=== PATIENT | male | born 1995 | race Caucasian/White ===

== ENCOUNTER 2016-11-06 12:25 | Emergency (ER) | payer BC ==
[2016-11-06 13:54] VITALS: BP 126/56
--- NOTE | 2016-11-06 16:03 | UC ---
Lower Extremity/Ankle HPI - HPI Summary HPI Summary: skiing on Wednesday, no particular injuries. Woke Wednesday with redness, pain, swelling along shinbone on left lower leg. As days went by it felt better, but now noting bruising around ankle. HE skis quite a bit. Limped heavily first few days, today can walk comfortably. Hasn't been skiing since the pain started. - History of Current Complaint Chief Complaint: UCLowerExtremity Stated Complaint: LEFT LEG PAIN Time Seen by Provider: 11/06/16 15:30 Hx Obtained From: Patient Onset/Duration: Gradual Onset, Lasting Days - 4 Severity Initially: Moderate Severity Currently: Mild Aggravating Factor(s): Ambulation, Other - dorsiflexion and plantarflexing foot Alleviating Factor(s): Rest, Elevation, Ice Able to Bear Weight: Yes - Risk Factors Gout Risk Factors: Negative DVT Risk Factors: Negative Septic Arthritis Risk Factor: Negative - Allergies/Home Medications Allergies/Adverse Reactions: Allergies Allergy/AdvReac Type Severity Reaction Status Date / Time No Known Allergies Allergy Verified 11/06/16 13:54 PMH/Surg Hx/FS Hx/Imm Hx Previously Healthy: Yes - Surgical History Surgical History: None - Family History Known Family History: Positive: Other - no skeletal disorders - Social History Occupation: Student Lives: Alone - dorm Alcohol Use: Occasionally Substance Use Type: None Smoking Status (MU): Never Smoked Tobacco Review of Systems Constitutional: Negative Skin: Negative Eyes: Negative ENT: Negative Respiratory: Negative Cardiovascular: Negative Gastrointestinal: Negative Genitourinary: Negative Motor: Negative Neurovascular: Negative Musculoskeletal: Myalgia Neurological: Negative Psychological: Negative All Other Systems Reviewed And Are Negative: Yes Physical Exam Triage Information Reviewed: Yes Appearance: Well-Appearing, No Pain Distress, Well-Nourished Vital Signs: Initial Vital Signs Temp 97.5 F 11/06/16 13:51 Pulse 68 11/06/16 13:51 Resp 16 11/06/16 13:51 BP 126/56 11/06/16 13:51 Pulse Ox 100 11/06/16 13:51 Vital Signs Reviewed: Yes Eye Exam: Normal Neck exam: Normal Respiratory Exam: Normal Cardiovascular Exam: Normal Musculoskeletal Exam: Other - tender along lateral surface of left tibia. There is pitting edema there. Mild bruising over anterior ankle, no tenderness there. Can plantarflex and dorsiflex with minimal discomfort. walking normally Neurological Exam: Normal Psychological Exam: Normal Skin Exam: Normal Lower Extremity Course/Dx - Differential Dx/Diagnosis Differential Diagnosis/HQI/PQRI: Cellulitis, Compartment Syndrome, Fracture ( Closed), Sprain, Tendonitis Provider Diagnoses: sol splints Discharge - Discharge Plan Condition: Stable Disposition: HOME Patient Education Materials: Sol Splint Exercises (GEN), Sol Splints (ED) Referrals: Non Staff,Doctor [Primary Care Provider] -
== END 2016-11-06 16:11 | disposition home or self-care (01) ==
LOC: UCCORT 12:25
DX: S86.892A Other injury of other muscle(s) and tendon(s) at lower leg level, left leg, initial encounter (principal); X58.XXXA Exposure to other specified factors, initial encounter; Y93.23 Activity, snow (alpine) (downhill) skiing, snowboarding, sledding, tobogganing and snow tubing; Y92.9 Unspecified place or not applicable
CPT/HCPCS: 99212; G0463

== ENCOUNTER 2019-01-15 15:31 | Emergency (ER) | payer BC ==
--- NOTE | 2019-01-15 15:49 | UC ---
FLU HPI - HPI Summary HPI Summary: 23 year old male presents with complaints of sore throat for past week. States 3 days ago developed chest congestion and an occasionally productive cough. States chest "nelson" with coughing. Also notes body aches. History of asthma and has needed to use his albuterol inhaler a couple times for mild wheezing since cough started. Denies fever, chills, ear pain, nasal congestion, runny nose, dysphagia, chest pain, shortness of breath, abdominal pain, nausea, or vomiting. - History of Current Complaint Stated Complaint: COUGH, CONGESTION, ACHEY Time Seen by Provider: 01/15/19 15:40 Hx Obtained From: Patient - Allergy/Home Medications Allergies/Adverse Reactions: Allergies Allergy/AdvReac Type Severity Reaction Status Date / Time No Known Allergies Allergy Verified 01/15/19 15:42 Home Medications: Home Medications Albuterol HFA INHALER* [Ventolin HFA Inhaler*] 2 puff INH Q4H PRN 01/15/19 [ History Confirmed 01/15/19] Ibuprofen TAB* [Motrin TAB* 400 MG] 400 mg PO Q6H PRN 01/15/19 [History Confirmed 01/15/19] guaiFENesin [Mucinex] 600 mg PO Q12HR PRN 01/15/19 [History Confirmed 01/15/19] PMH/Surg Hx/FS Hx/Imm Hx Previously Healthy: Yes Respiratory History: Asthma - Surgical History Surgical History: Yes - Shoulder arthorscopy - Family History Known Family History: Positive: Non-Contributory - Social History Alcohol Use: Occasionally Substance Use Type: None Smoking Status (MU): Never Smoked Tobacco - Immunization History Vaccination Up to Date: Yes Review of Systems All Other Systems Reviewed And Are Negative: Yes Constitutional: Negative: Fever, Chills Skin: Negative: Rash Eyes: Negative: Drainage, Eye Redness ENT: Positive: Sore Throat. Negative: Ear Ache, Nasal Discharge, Sinus Congestion, Sinus Pain/Tenderness Respiratory: Positive: Cough, Other - Wheezing. Negative: Shortness Of Breath Cardiovascular: Negative: Palpitations, Chest Pain Gastrointestinal: Negative: Abdominal Pain, Vomiting, Diarrhea, Nausea Genitourinary: Positive: Negative Musculoskeletal: Positive: Negative Neurological: Positive: Negative Is Patient Immunocompromised?: No Physical Exam - Summary Physical Exam Summary: GENERAL APPEARANCE: Well developed, well nourished, alert and cooperative, and appears to be in no acute distress. EYES: Conjunctiva clear. No drainage. EARS: External auditory canals and tympanic membranes clear, hearing grossly intact. NOSE: No nasal discharge. THROAT: Pharyngeal erythema. 1+ tonsils with exudate. Uvula midline. Oral cavity normal. Teeth and gingiva in good general condition. NECK: Neck supple, non-tender without lymphadenopathy. CARDIAC: Normal S1 and S2. No S3, S4 or murmurs. Rhythm is regular. There is no peripheral edema, cyanosis or pallor. Extremities are warm and well perfused. Capillary refill is less than 2 seconds. Peripheral pulses intact. LUNGS: Clear to auscultation without rales, rhonchi, wheezing or diminished breath sounds. Dry, non-productive cough. ABDOMEN: Positive bowel sounds. Soft, nondistended, nontender. No guarding or rebound. No masses or hepatosplenomegally. MUSKULOSKELETAL: ROM intact to all extremities. No joint erythema or tenderness. Normal muscular development. Normal gait. SKIN: Skin normal color, texture and turgor with no lesions or eruptions. Triage Information Reviewed: Yes Vital Signs Reviewed: Yes Diagnostics - Radiology No standard instances Radiology Interpretation Completed By: ED Physician - No acute cardiopulmonary pathology., Radiologist Summary of Radiographic Findings: Order Information: CHEST PA LAT 2 VWS. Accession Number: [id number]. CPT: 98723. Indication: Cough. 2 views of the chest including dual energy PA views demonstrates no mediastinal shift. Heart is of normal size and configuration. Lung torres show no pleural fluid, pneumonia or pneumothorax. IMPRESSION: No active cardiopulmonary disease is noted. Flu Course/Dx - Course Course Of Treatment: 23 year old male presents with complaints of sore throat for past week. States 3 days ago developed chest congestion and an occasionally productive cough. States chest "nelson" with coughing. Also notes body aches. History of asthma and has needed to use his albuterol inhaler a couple times for mild wheezing since cough started. Denies fever, chills, ear pain, nasal congestion, runny nose, dysphagia, chest pain, shortness of breath, abdominal pain, nausea, or vomiting. Afebrile. Hypertensive otherwise vital signs stable. Exam remarkable for pharyngeal erythema and 1+ tonsils with exudate. No cervical lymphadenopathy. Bilateral breath sounds clear. Dry, non-productive cough. Rapid strep test was negative. Patient states he is concerned for pneumonia and requests CXR. Discussed risks of radiological testing without indication and patient is electing to have performed. CXR showed no acute cardiopulmonary pathology. Recommending symptomatic treatment for viral URI including Tessalon Perles 1 cap every 8 hours as needed. He is to return here or with PCP in 5 days if symptoms persist. Anticipatory guidance and warning symptoms reviewed with patient. Verbalizes understanding and agrees with POC. - Differential Dx/Diagnosis Differential Diagnosis/HQI/PQRI: Bronchitis, Influenza, Pneumonia, Other - Viral URI, strep pharyngitis Provider Diagnosis: Viral URI with cough Discharge - Sign-Out/Discharge Documenting (check all that apply): Patient Departure All imaging exams completed and their final reports reviewed: No Studies - Discharge Plan Condition: Stable Disposition: HOME Prescriptions: Benzonatate CAP* [Tessalon 100 MG CAP*] 100 mg PO TID PRN #30 cap PRN Reason: Cough Patient Education Materials: Upper Respiratory Infection (ED) Referrals: Non Staff,Doctor [Primary Care Provider] - Additional Instructions: The rapid strep test performed in the clinic today was negative. The chest x- ray performed in the clinic today was reviewed by myself and the radiologist and was normal, no evidence of pneumonia. Your history and exam are consistent with a viral upper respiratory infection. Viral infections do not respond to antibiotics and are limited to the treatment of symptoms. Viral infections typically run their course in 7-10 days. Drink plenty of fluids to avoid dehydration especially if you are running any fever. Take Tessalon Perles 1 capsule every 8 hours as needed for cough. Take over the counter acetaminophen (Tylenol) or ibuprofen (Advil, Motrin) according to directions as needed for pain or fever. Use salt water gargles several times a day if you have a sore throat. You may also use Chloraseptic spray or Cepacol lonzenges according to directions which contain a numbing medication and can provide some temporary relief from your sore throat. Return here or follow up with your primary care provider in 5 days if symptoms persist. Seek immediate medical attention in the emergency room if you have fever greater than 100.5 F despite taking acetaminophen or ibuprofen, have chest pain , difficulty breathing, are unable to swallow, or have any worsening of symptoms. - Billing Disposition and Condition Condition: STABLE Disposition: Home
[2019-01-15 15:53] VITALS: BP 147/75
== END 2019-01-15 17:21 | disposition home or self-care (01) ==
LOC: UCCORT 15:31
DX: J06.9 Acute upper respiratory infection, unspecified (principal); R05 Cough; J02.9 Acute pharyngitis, unspecified; R09.89 Other specified symptoms and signs involving the circulatory and respiratory systems; J45.909 Unspecified asthma, uncomplicated
CPT/HCPCS: 71046; 87651; 99212; G0463